=== PATIENT | male | born 1950 | race Caucasian/White ===

== ENCOUNTER 2019-01-01 06:02 | Inpatient (IN) | payer BC, MEDICARE ==
--- NOTE | 2018-12-31 19:05 | HP ---
HISTORY OF PRESENT ILLNESS: This is a 68-year-old gentleman, referred by Dr. Canelo Godfrey. In 2016, the patient had a PROMUS stent to the obtuse marginal #3. Serial stress studies have been negative until recently when he had some stress test showing mild ischemia to the anterior wall. Cardiac catheterization demonstrated progression of LAD diagonal disease. PAST MEDICAL HISTORY: Includes hyperlipidemia as well as lupus. The patient denies hypertension. PAST SURGICAL HISTORY: Includes TURP in April of this year, prior cholecystectomy and left inguinal hernia repair, prior colonoscopy. SOCIAL HISTORY: The patient is a nonsmoker. 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 ALLERGIES: HE REPORTS ALLERGIES TO FISH OIL, WHICH CAUSES ITCHING. CURRENT MEDICATIONS: Include; 1. Atorvastatin 20 a day. 2. Aspirin 81 a day. 3. Sulfasalazine 500 mg q.i.d. PHYSICAL EXAMINATION: GENERAL: He is alert, cooperative gentleman, in no distress. VITAL SIGNS: Recorded weight of 144 pounds, height 5 feet and 7 inches, blood pressure 110/60, heart rate 65. NECK: No carotid bruits. LUNGS: Clear to auscultation. CARDIAC: Regular rate and rhythm. No murmurs. EXTREMITIES: No edema. He has palpable posterior tibial pulses bilaterally. Cardiac catheterization shows LAD diagonal disease, with the circ and right showing no significant disease. REVIEW OF SYSTEMS: The patient denies fatigue, chest pain either at rest or with exertion, and no claudication. He has no abdominal pain. He has no neurologic symptoms to suggest a TIA or stroke. Informed consent has been obtained. Job ID: [id number]
[2019-01-01] MEDS ORDERED: Albumin 5% 500 ML ONE (06:35)
[2019-01-01] MEDS ORDERED: Fentanyl 250 MCG/5 ML VIAL ONE ×2 (06:42)
[2019-01-01] MEDS ORDERED: Midazolam HCl 5 mg/5 ml Vial ONE (06:43)
[2019-01-01] MEDS ORDERED: Heparin 10,000 UNITS/1 ML VIAL 30,000 UNITS in Sodium Chloride 0.9% 1,000 ML FS SCH (06:45)
[2019-01-01] MEDS ORDERED: Gentamicin 80 MG/2 ML VIAL ONE (07:56)
[2019-01-01] MEDS ORDERED: Phenylephrine HCL 10 MG/ML VIAL ONE (10:08)
[2019-01-01] MEDS ORDERED: Mag-Al 1200 mg/1200 mg/30 ML UDCUP PO PRN (10:57)
[2019-01-01] MEDS ORDERED: Hetastarch 6% 500 ML 500 ML IVPB PRN (10:57)
[2019-01-01] MEDS ORDERED: Ondansetron PF 4 MG/2 ML Vial IVP PRN (10:57)
[2019-01-01] MEDS ORDERED: Potassium Chloride 20 MEQ/100 ML PREMIX BAG IVPB PRN (10:57)
[2019-01-01] MEDS ORDERED: Norepinephrine 8 MG/0.9% NS 250 ML IVPB PRN (10:57)
[2019-01-01] MEDS ORDERED: Morphine 2 MG/ML SYRINGE SLOW IVP PRN (10:57)
[2019-01-01] MEDS ORDERED: Bisacodyl 5 MG TAB PO PRN (10:57)
[2019-01-01] MEDS ORDERED: DOPamine 400 MG/D5W 250 ML 250 ML IVPB PRN (10:57)
[2019-01-01] MEDS ORDERED: niCARdipine 25 MG in Sodium Chloride 0.9% 250 ML 250 ML IVPB PRN (10:57)
[2019-01-01] MEDS ORDERED: Guaifenesin DM 100-10/5 ML UDCUP PO PRN (10:57)
[2019-01-01] MEDS ORDERED: Fentanyl 100 MCG/2 ML VIAL SLOW IVP PRN (10:57)
[2019-01-01] MEDS ORDERED: Nitroglycerin 50 MG/250 ML BOT 250 ML IVPB PRN (10:57)
[2019-01-01] MEDS ORDERED: Promethazine HCl 25 MG/ML VIAL IM PRN (10:57)
[2019-01-01] MEDS ORDERED: Post-Op Insulin Drip Protocol IVPB ONE (10:57)
[2019-01-01] MEDS ORDERED: Acetaminophen 325 MG TAB PO PRN (10:57)
[2019-01-01] MEDS ORDERED: Bisacodyl 10 MG SUPP PR PRN (10:57)
[2019-01-01] MEDS ORDERED: hydrALAZINE 20 MG/ML VIAL SLOW IVP PRN (10:57)
[2019-01-01 11:07] LABS: Actual Bicarbonate (HCO3a) 22.6 mEq/L (22-28); Base Excess (BEa) -1.5 mEq/L (-2.0 to +3.0); CO2 Tension 35.9 mmHg (35.0-45.0); Calcium, Ionized 1.19 mmol/L (1.12-1.30); Carboxyhemoglobin (COHb) 0.2 gm% (0.0-3.0); Hemoglobin (Hb) 12.1 g/dL (14.0-18.0); O2 Tension (PaO2) 276.3 mmHg (> 80.0); Potassium - ABG Lab 3.98 mmol/L (3.70-5.30); pH, Arterial 7.42 (7.35-7.45)
[2019-01-01 11:08] LABS: ALV-art Gradient 106.625 (0-20); Puncture Site ALONE
[2019-01-01] MEDS ORDERED: Dextrose 5% in Water 1,000 ML IV PRN (11:11)
[2019-01-01] MEDS ORDERED: Insulin Regular 300 UNITS/3 ML VIAL SC PRN (11:11)
[2019-01-01] MEDS ORDERED: Dextrose 50% Abboject 50 ML SYRINGE SLOW IVP PRN (11:11)
[2019-01-01] MEDS ORDERED: HUMULIN R 100 UNITS in Sodium Chloride 0.9% 100 ML IVPB SCH (11:11)
--- NOTE | 2019-01-01 11:12 | RAD ---
XR Chest 1 View Portable HISTORY: Postop open heart surgery. COMPARISON: None. FINDINGS: Endotracheal tube is in satisfactory position. A right subclavian line is present. Midline and left-sided chest tubes are noted with sternotomy change. The lungs are clear of infiltrates. IMPRESSION: Postop sternotomy changes. The endotracheal tube is in satisfactory position.
[2019-01-01 11:23] LABS: INR-International Normal Ratio 1.2; Prothrombin Time 14.7 SEC (12.0-14.7)
[2019-01-01 11:24] LABS: PTT 33.6 SEC (22.9-36.1)
[2019-01-01] MEDS: Lactated Ringer's 1,000 ML IV SCH ×2 (11:25→23:49)
[2019-01-01 11:28] LABS: #Eosinphils 0.2 thou/uL (0.0-0.7); #Lymphocytes 1.8 thou/uL (1.20-3.40); #Monocytes 0.9 thou/uL (0.11-0.59); #Neutrophils 12.1 thou/uL (1.40-6.50); %Basophils 0.2 % (0.0-1.0); %Eosinophils 1.6 % (0.0-10.0); %Neutrophils 80.1 % (42.0-75.0); Hemoglobin 11.8 g/dL (14.0-18.0); Mean Corpuscular HGB CONC 33.6 g/dL (32.0-36.0); Mean Corpuscular Hemoglobin 32.9 pg (27.0-31.0); Mean Corpuscular Volume 97.7 fL (78.0-98.0); Mean Platelet Volume 7.9 fL (7.4-10.4); Platelet Count 181 thou/uL (130-400); RBC Distribution Width 11.9 % (11.5-14.5); Red Blood Cell (RBC) Count 3.58 mill/uL (4.70-6.10); White Blood Cell (WBC) Count 15.1 thou/uL (4.8-10.8)
[2019-01-01] MEDS: Ketorolac Tromethamine 30 MG/ML VIAL IVP SCH ×3 (11:37→23:46)
[2019-01-01 11:39] LABS: Anion Gap 8 mmol/L (10-20); BUN (Urea Nitrogen) 13 mg/dL (8.4-25.7); Calc. Creatinine Clearance 86 mL/min (70-130); Calcium 8.6 mg/dL (7.8-10.44); Carbon Dioxide 24 mmol/L (23-31); Chloride 107 mmol/L (98-107); Estimated GFR-MDRD Greater than 90; Glucose 166 mg/dL (80-115); Sodium 135 mmol/L (136-145)
[2019-01-01 13:17] LABS: Actual Bicarbonate (HCO3a) 20.6 mEq/L (22-28); Base Excess (BEa) -5.5 mEq/L (-2.0 to +3.0); Calcium, Ionized 1.16 mmol/L (1.12-1.30); Carboxyhemoglobin (COHb) 0.3 gm% (0.0-3.0); Hemoglobin (Hb) 11.8 g/dL (14.0-18.0); O2 Tension (PaO2) 182.7 mmHg (> 80.0); Potassium - ABG Lab 3.87 mmol/L (3.70-5.30)
[2019-01-01 13:29] LABS: Puncture Site ALINE
[2019-01-01] MEDS ORDERED: Heparin 30,000 units/30 ml VIAL ONE (13:34)
[2019-01-01] MEDS ORDERED: Papaverine 60 MG/2 ML VIAL ONE (13:34)
[2019-01-01] MEDS ORDERED: Protamine Sulfate 250 MG/25 ML VIAL ONE (13:34)
[2019-01-01] MEDS ORDERED: Aminocaproic Acid 5 GM/20 ML VIAL ONE (13:34)
[2019-01-01] MEDS ORDERED: Sodium Bicarb 50 MEQ/50 ML VIAL ONE (13:34)
[2019-01-01] MEDS ORDERED: Potassium Chloride 60 MEQ/30 ML VIAL ONE (13:34)
[2019-01-01] MEDS ORDERED: Ondansetron PF 4 MG/2 ML Vial ONE (13:34)
[2019-01-01] MEDS ORDERED: Heparin 5,000 UNITS/ML VIAL ONE (13:34)
[2019-01-01] MEDS ORDERED: Mannitol 12.5 GM/50 ML ONE (13:34)
[2019-01-01] MEDS ORDERED: Cardioplegic Soln 1,000 ML BAG ONE (13:34)
[2019-01-01] MEDS ORDERED: Lidocaine 2% PF 100 mg/5 ml Syringe ONE (13:34)
[2019-01-01] MEDS ORDERED: Magnesium 5 GM/10 ML VIAL ONE (13:34)
[2019-01-01] MEDS ORDERED: Thrombin 5000 UNITS/5 ML VIAL ONE (13:34)
[2019-01-01] MEDS ORDERED: PROPOFOL 200 MG/20 ML VIAL ONE (13:34)
[2019-01-01] MEDS ORDERED: Vecuronium 10 MG VIAL ONE (13:34)
[2019-01-01] MEDS ORDERED: Calcium Chloride 1 GM/10 ML Abboject SYRINGE ONE (13:34)
[2019-01-01] MEDS: Fentanyl 100 MCG/2 ML VIAL SLOW IVP PRN ×2 (13:41→16:29)
[2019-01-01] MEDS: CEFAZOLIN 2 GM in Premix Bag 1 BAG IVPB SCH ×2 (13:50→21:19)
--- NOTE | 2019-01-01 15:43 | CON ---
DATE OF CONSULTATION: 01/01/2019 REASON FOR CONSULTATION: Status post CABG. PRIMARY SYSTEMS ENGINEERING MANAGER: Canelo Godfrey MD HISTORY OF PRESENT ILLNESS: Mr. Payan is a pleasant 68-year-old white gentleman, who comes to the hospital for a planned CABG. This was performed by Dr. Parra earlier today. Mr. Payan had a heart catheterization that showed complex LAD and diagonal disease and this was bypassed today. On my evaluation, he was intubated, but already awakened close to being extubated. He is following commands. He is hemodynamically stable on no sedation, maintaining his blood pressures on no inotropic or pressor support. PAST MEDICAL HISTORY: 1. Hyperlipidemia. 2. Lupus. 3. Coronary artery disease, status post stent to his OM in 2015 and bypass earlier today. PAST SURGICAL HISTORY: 1. TURP in April of this year. 2. Cholecystectomy. 3. Left inguinal hernia repair. 4. Colonoscopies in the past. 5. Heart catheterization with stenting and more recently just a diagnostic heart catheterization. SOCIAL HISTORY: No alcohol, tobacco, or drugs. ALLERGIES: FISH OIL CAUSES ITCHING. OUTPATIENT MEDICATIONS: 1. Atorvastatin 10 mg a day. 2. Aspirin 81 a day. 3. Sulfasalazine 500 mg q.i.d. FAMILY HISTORY: Noncontributory. REVIEW OF SYSTEMS: Unable to be obtained as the patient was intubated on my evaluation. PHYSICAL EXAMINATION: VITAL SIGNS: Temperature 96.7, pulse 69, respiratory rate 29, saturating 100% on 30% FiO2, and blood pressure 97/51. GENERAL: Awake, but remains intubated. HEENT: Normocephalic, atraumatic. NECK: Supple. LUNGS: Clear sounds anteriorly. CARDIOVASCULAR: S1 and S2. There are three-component rub. ABDOMEN: Soft. EXTREMITIES: Trace edema. SKIN: Warm and dry. LABORATORY DATA: Laboratory work was reviewed. CBC, coags, ABG, and chemistries were reviewed. IMAGING DATA: Postop chest x-ray was reviewed. ASSESSMENT: 1. Coronary artery disease, status post coronary artery bypass grafting. 2. Hyperlipidemia. PLAN: 1. Continue postoperative and supportive care. 2. Aspirin and statin for life. 3. We will start beta-cristel and an YUSEF inhibitor as long as blood pressure and heart rate allows. Currently, his blood pressure is borderline low. 4. Start PT when tolerated. 5. We will follow. Job ID: [id number]
[2019-01-01] MEDS ORDERED: Insulin Regular 300 UNITS/3 ML VIAL ONE (16:36)
[2019-01-01 16:39] LABS: Hemoglobin 10.9 g/dL (14.0-18.0)
[2019-01-01 16:51] LABS: Potassium 4.4 mmol/L (3.5-5.1)
[2019-01-01] MEDS: sulfaSALAzine 500 MG TAB PO SCH (21:19)
[2019-01-01] MEDS: Famotidine/PF 20 mg/2ml Vial SLOW IVP SCH (21:19)
[2019-01-01] MEDS: Atorvastatin Calcium 20 MG TAB PO SCH (21:19)
--- NOTE | 2019-01-01 22:50 | CON ---
DATE OF CONSULTATION: 01/01/2019 CONSULTING PHYSICIAN: Dr. Parra. REASON FOR CONSULTATION: Urethral stricture. HISTORY OF PRESENT ILLNESS: Mr. Payan is a 68-year-old white male, who is currently coming in for a CABG procedure. He has a history of a TURP done by Dr. Frias recently within the last few months. He apparently had been diagnosed with urethral stricture postoperatively, but had not yet had this treated. He did tell this Dr. Parra immediately before surgery. Upon undergoing the surgery at the start of the case, attempts to pass a Sheridan catheter were unsuccessful. I was then asked to come in for further assistance to assist with catheter insertion. ALLERGIES: FISH OIL. CURRENT MEDICATIONS: 1. Atorvastatin. 2. Aspirin. 3. Sulfasalazine. PAST MEDICAL HISTORY: 1. Hyperlipidemia. 2. Lupus. 3. BPH. 4. Urethral stricture. PAST SURGICAL HISTORY: 1. TURP. 2. Cholecystectomy. 3. Left inguinal hernia repair. 4. Colonoscopy. FAMILY HISTORY: Unable to be obtained and apparently noncontributory by nursing report. SOCIAL HISTORY: The patient is a nonsmoker. Currently lives alone. Works on a [employer] in [place]. REVIEW OF SYSTEMS: A 12-point review of systems cannot be obtained as the patient is currently intubated and sedated. PHYSICAL EXAMINATION: VITAL SIGNS: Temperature 98.2, pulse 69, respirations 20 on ventilator, blood pressure 105/48, and saturations 99%, again on ventilator. GENERAL: Appears stated age, well nourished, well developed, currently sedated and intubated. HEENT: Normocephalic, atraumatic. Pupils symmetric and round. Trachea midline. ET tube in place, secured. CARDIOVASCULAR: Regular rate and rhythm. Normal S1, S2. Symmetric pulses. CHEST: No increased work of breathing. Clear anteriorly. Symmetric expansion of the lungs. ABDOMEN: Soft, nontender, and nondistended. Positive bowel sounds. Previous well-healed incisions. No hernia. : The patient has no blood at the meatus. He is circumcised, bilaterally descended testes. No masses or lesions. RECTAL: Demonstrates a grade 3-4 prostate without nodules or lesions. EXTREMITIES: No clubbing, cyanosis, or edema. MUSCULOSKELETAL: No joint deformity or joint erythema noted. NEUROLOGIC: Exam cannot be performed as patient is currently sedated and under anesthesia. SKIN: Warm and dry. No rashes or lesions. Poor turgor. PSYCHIATRIC: Cannot be assessed. LABORATORY DATA: A full set of labs are in the [facility] system, which I have reviewed. The patient's creatinine is normal at 0.98. All other lab parameters are normal. PROCEDURE: Please see operative note dictated separately for the insertion of the catheter. ASSESSMENT AND PLAN: A 68-year-old white male with urethral stricture status post dilation done intraoperatively as intraoperative consult. We would recommend leaving the catheter in for at least 7 days. On my discussion with Dr. Parra, the patient will probably be discharged to cardiac rehab prior to this. The patient has an established urologist and should follow up with Dr. Frias for a void trial in approximately 1 week. The patient may be at risk for stricture recurrence as dilations have the lowest success rate of all treatments. That said it may remain open, but if it recurs, he will need more definitive treatment with either direct vision internal urethrotomy or urethroplasty depending on stricture staging. Currently, patient has already received gentamicin. No additional antibiotics are necessary. I will go ahead and sign off. If there are any further questions or problems, please re-consult and I will be happy to assist. Job ID: [id number]
--- NOTE | 2019-01-01 23:03 | OP ---
DATE OF PROCEDURE: 01/01/2019 SERVICE: Urology. PREOPERATIVE DIAGNOSIS: Urethral stricture. POSTOPERATIVE DIAGNOSIS: Urethral stricture. PROCEDURE PERFORMED: Cystoscopy with urethral dilation and placement of a 16-Djiboutian Enterprise-tip catheter. INDICATION FOR PROCEDURE: This patient was an intraoperative consult. Dr. Jefry Parra is bringing the patient in for an elective CABG. The patient has a history of a TURP done by Dr. Frias as an outpatient and apparently had been told that he had a urethral stricture. When brought back to the operating room, the surgeon was unable to pass a catheter and I was consulted intraoperatively for placement of a Sheridan catheter. DESCRIPTION OF PROCEDURE: After my arrival to the operating room, a brief time-out was obtained to ensure patient and the need for procedure. He was then prepped and draped in usual sterile fashion. A flexible cystoscope was brought in and inserted into the patient's distal urethra. The patient had already been put to sleep for his coronary artery bypass grafting procedure and I was unable to talk to him for the duration of the procedure. Cystoscopy demonstrated normal urethra up to the bulbar urethra where there was apparently a thin stricture present. I was not able to evaluate the prostate proximal to this. An Amplatz Superstiff wire was able to be advanced through the stricture into the bladder. The cystoscope was then removed and Cassi dilators were brought in starting at 10-Djiboutian and up to 22-Djiboutian, serially dilated. After dilation, a 16-Djiboutian Enterprise tip catheter was advanced over the Super Stiff wire with ease into the bladder. The wire was removed and a 25 mL of sterile water was placed into the balloon. Catheter was attached to gravity bag and left for gravity drainage. I thus concluded my portion of the procedure. Dr. Jefry Parra will then perform the CABG surgery that was planned from the start. COMPLICATIONS: For my portion of the procedure, none. ESTIMATED BLOOD LOSS: Minimal. RETAINED TUBES AND DRAINS: A 16-Djiboutian Enterprise tip catheter to gravity drainage. SPECIMENS: None. DISPOSITION: The patient will be admitted after surgery by Dr. Parra to the CCU for postoperative CABG protocol. From my standpoint, he will need to keep a Sheridan catheter in for 7 days at which point, we can consider a void trial. The patient can follow up with Dr. Frias, his primary urologist after discharge for eventual followup. Job ID: [id number]
[2019-01-02 03:51] LABS: #Eosinphils 0.2 thou/uL (0.0-0.7); #Lymphocytes 1.1 thou/uL (1.20-3.40); %Basophils 0.2 % (0.0-1.0); %Eosinophils 1.8 % (0.0-10.0); %Lymphocytes 8.6 % (21.0-51.0); %Neutrophils 81.5 % (42.0-75.0); Hemoglobin 11.4 g/dL (14.0-18.0); Mean Corpuscular HGB CONC 34.6 g/dL (32.0-36.0); Mean Corpuscular Hemoglobin 34.4 pg (27.0-31.0); Mean Corpuscular Volume 99.4 fL (78.0-98.0); Mean Platelet Volume 7.7 fL (7.4-10.4); Platelet Count 176 thou/uL (130-400); RBC Distribution Width 12.1 % (11.5-14.5); Red Blood Cell (RBC) Count 3.31 mill/uL (4.70-6.10); White Blood Cell (WBC) Count 12.3 thou/uL (4.8-10.8)
[2019-01-02 04:10] LABS: Anion Gap 8 mmol/L (10-20); BUN (Urea Nitrogen) 12 mg/dL (8.4-25.7); Calc. Creatinine Clearance 88 mL/min (70-130); Calcium 8.3 mg/dL (7.8-10.44); Carbon Dioxide 25 mmol/L (23-31); Chloride 106 mmol/L (98-107); Estimated GFR-MDRD Greater than 90; Glucose 97 mg/dL (80-115); Potassium 4.3 mmol/L (3.5-5.1); Sodium 135 mmol/L (136-145)
[2019-01-02] MEDS: CEFAZOLIN 2 GM in Premix Bag 1 BAG IVPB SCH (05:41)
[2019-01-02] MEDS: Ketorolac Tromethamine 30 MG/ML VIAL IVP SCH ×3 (05:42→17:45)
[2019-01-02] MEDS: Famotidine/PF 20 mg/2ml Vial SLOW IVP SCH (07:37)
[2019-01-02] MEDS: HYDROcodone/Acetaminophen 5/325 mg Tablet PO PRN (07:38)
--- NOTE | 2019-01-02 08:26 | OP ---
DATE OF PROCEDURE: 01/01/2019 DIAGNOSIS: Coronary artery disease. PROCEDURES PERFORMED: Coronary artery bypass graft x2, left internal mammary artery to an LAD, saphenous vein to a diagonal with both targets being good targets. ENGINEERING CONSULTANT: Dr. Baker. TRANSFUSION: None. DESCRIPTION OF PROCEDURE: After adequate anesthesia had been obtained, Dr. Baker harvested a segment of saphenous vein from the distal left thigh while I performed a median sternotomy harvesting the left internal mammary artery. The left pleura was entered in one small area. After heparinization, the mammary was divided distally and passed posterior to the thymus gland. Aorta and right atrium were cannulated and cardiopulmonary bypass was begun. Aorta was cross clamped and after 900 mL of cold blood cardioplegia, the two distal anastomoses were completed. Cross-clamp was removed, partial occluding clamp placed, and a single proximal anastomosis was performed and marked with a ring. Following this, the patient was weaned from cardiopulmonary bypass. Cannula was removed and protamine given systemically. Mediastinal and left pleural drains were placed, following which the sternum was reapproximated with #7 interrupted wire using vancomycin paste on the sternal edges, platelet rich blood and platelet poor plasma. Subcutaneous tissue and skin were closed in layers. The patient is to be taken to the ICU in guarded condition. It should be noted that prior to surgical undertaking, the patient required Dr. Booth to perform cystoscopy to place a Sheridan catheter due to a bulbar urethral stricture. Job ID: [id number]
[2019-01-02] MEDS: Enoxaparin Sodium 30 MG/0.3 ML SYRINGE SC SCH (08:55)
[2019-01-02] MEDS: Polyethylene Glycol 3350 17 GM Packet PO SCH (08:57)
[2019-01-02] MEDS ORDERED: Aspirin 325 MG TAB PO SCH (09:00)
--- NOTE | 2019-01-02 09:12 | RAD ---
PORTABLE CHEST: DATE: 01/02/2019. PROVIDED CLINICAL HISTORY: Post open heart. COMPARISON: 01/01/2019. FINDINGS: Interval removal of endotracheal tube. Additional significant interval change with respect to the pr ior examination is not apparent. IMPRESSION: As above. POS: TPC
[2019-01-02] MEDS: sulfaSALAzine 500 MG TAB PO SCH ×2 (10:41→21:28)
--- NOTE | 2019-01-02 14:28 | PDOC.CPN ---
- Subjective Date: 01/02/19 Time: 14:26 Interval history: He is doing well. Chest tubes are out. No pressors or innotropes. - Review of Systems General: denies: fever/chills, weight/appetite/sleep changes, night sweats, fatigue Respiratory: denies: cough, congestion, shortness of breath, exercise intolerance Cardiovascular: reports: chest pain. denies: palpitation, edema, paroxysmal nocturnal dyspnea, orthopnea Gastrointestinal: denies: nausea, vomiting, diarrhea, constipation, abd pain, GI bleeding Musculoskeletal: denies: pain, tenderness, stiffness, swelling, arthritis/ arthralgias Neurological: denies: numbness, syncope, seizure, weakness - Objective Allergies/Adverse Reactions: Allergies Allergy/AdvReac Type Severity Reaction Status Date / Time oxybutynin Allergy Anxiety Verified 12/31/18 10:52 HEB Fish Oil Allergy Rash Uncoded 12/31/18 10:52 Visit Medications: Current Medications Acetaminophen (Tylenol) 650 mg PO Q6H PRN PRN Reason: Headache/Fever Or Mild Pain Hydrocodone Bitart/Acetaminophen ([place] 5/325) 1 tab PO Q4H PRN PRN Reason: Moderate Pain (4-6) Last Admin: 01/02/19 07:38 Dose: 1 tab Hydrocodone Bitart/Acetaminophen ([place] 5/325) 2 tab PO Q4H PRN PRN Reason: Severe Pain (7-10) Al Hydroxide/Mg Hydroxide (Maalox) 30 ml PO Q4H PRN PRN Reason: Indigestion Albuterol/Ipratropium (Duoneb) 3 ml NEB Q6H PRN PRN Reason: SHORTNESS OF BREATH Aspirin (Aspirin) 325 mg PO DAILY [facility] Last Admin: 01/02/19 08:54 Dose: 325 mg Atorvastatin Calcium (Lipitor) 20 mg PO HS [facility] Last Admin: 01/01/19 21:19 Dose: 20 mg Bisacodyl (Dulcolax) 10 mg PO Q12H PRN PRN Reason: Constipation Bisacodyl (Dulcolax) 10 mg MD Q12H PRN PRN Reason: Constipation Enoxaparin Sodium (Lovenox) 30 mg SC 0900 [facility] Last Admin: 01/02/19 08:55 Dose: 30 mg Famotidine (Pepcid) 20 mg SLOW IVP Q12HR [facility] Last Admin: 01/02/19 07:37 Dose: 20 mg Fentanyl (Sublimaze) 25 mcg SLOW IVP Q2H PRN PRN Reason: Moderate Pain (4-6) Stop: 01/03/19 10:42 Last Admin: 01/01/19 16:29 Dose: 25 mcg Fentanyl (Sublimaze) 50 mcg SLOW IVP Q2H PRN PRN Reason: Severe Pain (7-10) Stop: 01/03/19 10:42 Guaifenesin/Dextromethorphan (Robitussin Dm) 15 ml PO Q4H PRN PRN Reason: Cough Hydralazine HCl (Apresoline) 10 mg SLOW IVP Q6H PRN PRN Reason: To Maintain SBP< 140mmHG Dopamine HCl/Dextrose (Dopamine 400 Mg/D5w 250 Ml) 250 mls @ 0 mls/hr IVPB PRN PRN; Protocol PRN Reason: To maintain SBP > 90 mmHG Lactated Ringer's (Lactated Ringer's) 1,000 mls @ 70 mls/hr IV .[id number] [facility] Last Admin: 01/01/19 23:49 Dose: 1,000 mls Norepinephrine Bitartrate (Levophed) 250 mls @ 0 mls/hr IVPB PRN PRN; Protocol PRN Reason: To maintain SBP > 90 mmHG Insulin Human Regular 100 (units/ Sodium Chloride) 101 mls @ 0 mls/hr IVPB INF JESSICA; Protocol Last Admin: 01/01/19 12:35 Dose: 101 mls Insulin Human Regular (Humulin R) 0 units SC Q4H PRN; Protocol PRN Reason: POST OP SLIDING SCALE Last Admin: 01/01/19 16:37 Dose: 2 unit Ketorolac Tromethamine (Toradol) 15 mg IVP Q6HR [facility] Stop: 01/04/19 12:01 Last Admin: 01/02/19 11:53 Dose: 15 mg Ondansetron HCl (Zofran) 4 mg IVP Q6H PRN PRN Reason: Nausea/Vomiting Last Admin: 01/02/19 07:38 Dose: 4 mg Polyethylene Glycol (Miralax) 17 gm PO DAILY [facility] Last Admin: 01/02/19 08:57 Dose: Not Given Potassium Chloride (Kcl) 20 meq IVPB PRN PRN PRN Reason: K level </= 4.0 Last Admin: 01/01/19 11:45 Dose: 20 meq Promethazine HCl (Phenergan) 6.25 mg IM Q4H PRN PRN Reason: Nausea/Vomiting Sulfasalazine (Azulfidine) 500 mg PO BID JESSICA Last Admin: 01/02/19 10:41 Dose: 500 mg Vital Signs & Weight: Vital Signs Temp Pulse Ox 01/02/19 11:00 98.4 F 01/02/19 08:00 98.5 F 100 01/02/19 04:00 99.1 F Weight 153 lb 10.595 oz - Physical Exam General: alert & oriented x3 HEENT: mucus membranes moist Neck: supple neck Cardiac: regular rate and rhythm, no murmur Lungs: clear to auscultation Neuro: grossly intact Abdomen: active bowel sounds, soft, non-tender Skin: clear Musculoskeletal: normal range of motion - Labs Result Diagrams: 01/02/19 03:40 01/02/19 03:30 - Telemetry Sinus rhythms and dysrhythmias: sinus rhythm - Assessment/Plan Assessment/Plan: 1. CAD 2. S/P CABG 3. Lupus 4. HLP PLAN: - Continue post op care. - Aspirin and statin for life. - Cannot add a BB or ACEI as BP is low. I doubt we will be able to add them before discharge as his BP is always on the low side. - Start PT and increase as tolerated. - Critical Care Time Critical care time (mins): 30
--- NOTE | 2019-01-02 16:49 | EKG ---
Test Reason : S/P CABG Blood Pressure : / mmHG Vent. Rate : 074 BPM Atrial Rate : 074 BPM P-R Int : 178 ms QRS Dur : 088 ms QT Int : 404 ms P-R-T Axes : 067 006 029 degrees QTc Int : 448 ms Normal sinus rhythm Cannot rule out Inferior infarct , age undetermined Abnormal ECG No previous ECGs available Confirmed by DR. Amber MARIE ([id number]) on 01/02/2019 4:48:48 PM Referred By: RYAN Confirmed By:DR. Amber MARIE
[2019-01-02] MEDS: Lactated Ringer's 1,000 ML IV SCH (17:46)
[2019-01-02] MEDS ORDERED: Guaifenesin DM 100-10/5 ML UDCUP PO PRN (19:19)
[2019-01-02] MEDS ORDERED: Mag-Al 1200 mg/1200 mg/30 ML UDCUP PO PRN (19:19)
[2019-01-02] MEDS ORDERED: Mineral Oil ENEMA PR PRN (19:19)
[2019-01-02] MEDS ORDERED: Nitroglycerin 0.4 MG TAB (25 Tab Bottle) SL PRN (19:19)
[2019-01-02] MEDS ORDERED: Acetaminophen 325 MG TAB PO PRN (19:19)
[2019-01-02] MEDS ORDERED: Bisacodyl 5 MG TAB PO PRN (19:19)
[2019-01-02] MEDS ORDERED: Bisacodyl 10 MG SUPP PR PRN (19:19)
[2019-01-02] MEDS ORDERED: Ondansetron PF 4 MG/2 ML Vial IVP PRN (19:19)
[2019-01-02] MEDS: Atorvastatin Calcium 20 MG TAB PO SCH (21:28)
[2019-01-02] MEDS: Famotidine 20 MG TAB PO SCH (21:28)
[2019-01-03] MEDS: HYDROcodone/Acetaminophen 5/325 mg Tablet PO PRN ×3 (00:39→21:22)
[2019-01-03] MEDS: Potassium Chloride 10 MEQ TAB PO SCH (08:54)
[2019-01-03] MEDS: Enoxaparin Sodium 30 MG/0.3 ML SYRINGE SC SCH (08:55)
[2019-01-03] MEDS: sulfaSALAzine 500 MG TAB PO SCH ×2 (08:55→21:22)
[2019-01-03] MEDS: Polyethylene Glycol 3350 17 GM Packet PO SCH (08:55)
[2019-01-03] MEDS: Furosemide 40 MG TAB PO SCH (08:55)
[2019-01-03] MEDS: Aspirin 325 mg Enteric Coated Tablet PO SCH (08:55)
[2019-01-03] MEDS: Famotidine 20 MG TAB PO SCH ×2 (08:55→21:22)
--- NOTE | 2019-01-03 10:38 | PDOC.CPN ---
- Subjective Date: 01/03/19 Time: 10:10 Interval history: No overnight events. Walked this morning with PT. - Review of Systems General: reports: weight/appetite/sleep changes, fatigue. denies: fever/chills , night sweats Respiratory: denies: cough, congestion, shortness of breath, exercise intolerance Cardiovascular: denies: chest pain, palpitation, edema, paroxysmal nocturnal dyspnea, orthopnea Musculoskeletal: reports: pain Neurological: reports: seizure. denies: numbness, syncope, weakness - Objective Allergies/Adverse Reactions: Allergies Allergy/AdvReac Type Severity Reaction Status Date / Time oxybutynin Allergy Anxiety Verified 12/31/18 10:52 HEB Fish Oil Allergy Rash Uncoded 12/31/18 10:52 Visit Medications: Current Medications Acetaminophen (Tylenol) 650 mg PO Q6H PRN PRN Reason: Headache/Fever or Pain Hydrocodone Bitart/Acetaminophen ([place] 5/325) 1 tab PO Q4H PRN PRN Reason: Moderate Pain (4-6) Last Admin: 01/03/19 08:55 Dose: 1 tab Hydrocodone Bitart/Acetaminophen ([place] 5/325) 2 tab PO Q4H PRN PRN Reason: Severe Pain (7-10) Last Admin: 01/03/19 00:39 Dose: 2 tab Al Hydroxide/Mg Hydroxide (Maalox) 30 ml PO Q4H PRN PRN Reason: Indigestion Aspirin (Ecotrin) 325 mg PO DAILY [facility] BEDS AT [facility] Last Admin: 01/03/19 08:55 Dose: 325 mg Atorvastatin Calcium (Lipitor) 20 mg PO HS [facility]S [facility]CLUDE 234 BEDS AT THE [facility] Last Admin: 01/02/19 21:28 Dose: 20 mg Bisacodyl (Dulcolax) 10 mg PO Q12H PRN PRN Reason: Constipation Bisacodyl (Dulcolax) 10 mg MT Q12H PRN PRN Reason: Constipation Enoxaparin Sodium (Lovenox) 30 mg SC 0900 [facility]S [facility] 234 BEDS AT [facility] Last Admin: 01/03/19 08:55 Dose: 30 mg Famotidine (Pepcid) 20 mg PO BID [facility]CLUDE 234 BEDS AT THE [facility] Last Admin: 01/03/19 08:55 Dose: 20 mg Fentanyl (Sublimaze) 25 mcg SLOW IVP Q2H PRN PRN Reason: Moderate Pain (4-6) Stop: 01/03/19 10:42 Last Admin: 01/01/19 16:29 Dose: 25 mcg Furosemide (Lasix) 40 mg PO DAILY [facility]CLUDE 234 BEDS AT THE [facility] Last Admin: 01/03/19 08:55 Dose: 40 mg Guaifenesin/Dextromethorphan (Robitussin Dm) 15 ml PO Q4H PRN PRN Reason: Cough Mineral Oil (Fleet Mineral Oil) 133 ml MT DAILYPRN PRN PRN Reason: Constipation Nitroglycerin (Nitrostat) 0.4 mg SL Q5MIN PRN PRN Reason: Chest Pain Ondansetron HCl (Zofran) 4 mg IVP Q6H PRN PRN Reason: Nausea/Vomiting Polyethylene Glycol (Miralax) 17 gm PO DAILY [facility] 234 BEDS AT [facility] Last Admin: 01/03/19 08:55 Dose: 17 gm Potassium Chloride (Klor-Con 10) 10 meq PO QAM-WM COUNTS INCLUDE 234 BEDS AT THE [facility] Last Admin: 01/03/19 08:54 Dose: 10 meq Sulfasalazine (Azulfidine) 500 mg PO BID [facility]CLUDE 234 BEDS AT THE [facility] Last Admin: 01/03/19 08:55 Dose: 500 mg Vital Signs & Weight: Vital Signs Temp Pulse Pulse Pulse Resp BP BP 01/03/19 09:24 89 83 96/52 L 104/56 L 01/03/19 08:27 97.6 F 81 18 01/03/19 03:17 98.8 F 65 18 BP Pulse Ox Pulse Ox Pulse Ox 01/03/19 09:24 97 97 01/03/19 08:27 94/54 L 98 01/03/19 03:17 94/54 L 95 Weight 150 lb 9.6 oz - Quality Measures CV meds: Beta Noé: No, YUSEF/ARB: No, Statin: Yes, ASA: Yes - Medication Contraindications No Beta Noé reason: Medical contraindication No YUSEF/ARB reason: Medical contraindication - Physical Exam General: alert & oriented x3, appears well HEENT: mucus membranes moist Neck: supple neck Cardiac: regular rate and rhythm Lungs: clear to auscultation, normal breath sounds, no wheeze, rales, rhonchi Neuro: grossly intact Abdomen: active bowel sounds, non-tender Skin: clear Musculoskeletal: normal range of motion - Labs Result Diagrams: 01/02/19 03:40 01/02/19 03:30 - Telemetry Sinus rhythms and dysrhythmias: sinus rhythm - Assessment/Plan Assessment/Plan: 1. CAD 2. S/P CABG 3. Lupus 4. HLD 5. Insomnia Stable. Continue to increase exercise as tolerated. No bblocker now due to hypotension. PRN sleep aid.
[2019-01-03 16:56] VITALS: BMI 22.7
[2019-01-03] MEDS: Atorvastatin Calcium 20 MG TAB PO SCH (21:22)
[2019-01-04] MEDS: Potassium Chloride 10 MEQ TAB PO SCH (08:16)
[2019-01-04] MEDS: Aspirin 325 mg Enteric Coated Tablet PO SCH (08:17)
[2019-01-04] MEDS: Polyethylene Glycol 3350 17 GM Packet PO SCH (08:17)
[2019-01-04] MEDS: Furosemide 40 MG TAB PO SCH (08:17)
[2019-01-04] MEDS: Enoxaparin Sodium 30 MG/0.3 ML SYRINGE SC SCH (08:17)
[2019-01-04] MEDS: Famotidine 20 MG TAB PO SCH ×2 (08:17→20:52)
[2019-01-04] MEDS: sulfaSALAzine 500 MG TAB PO SCH ×2 (08:17→20:52)
--- NOTE | 2019-01-04 10:31 | PDOC.CPN ---
- Subjective Date: 01/04/19 Time: 10:00 - Review of Systems General: denies: fever/chills, weight/appetite/sleep changes, night sweats, fatigue Respiratory: denies: cough, congestion, shortness of breath, exercise intolerance Cardiovascular: denies: chest pain, palpitation, edema, paroxysmal nocturnal dyspnea, orthopnea Gastrointestinal: reports: constipation. denies: nausea, vomiting, diarrhea, abd pain, GI bleeding Musculoskeletal: denies: pain, tenderness, stiffness, swelling, arthritis/ arthralgias Neurological: denies: numbness, syncope, seizure, weakness - Objective Allergies/Adverse Reactions: Allergies Allergy/AdvReac Type Severity Reaction Status Date / Time oxybutynin Allergy Anxiety Verified 12/31/18 10:52 HEB Fish Oil Allergy Rash Uncoded 12/31/18 10:52 Visit Medications: Current Medications Acetaminophen (Tylenol) 650 mg PO Q6H PRN PRN Reason: Headache/Fever or Pain Hydrocodone Bitart/Acetaminophen ([place] 5/325) 1 tab PO Q4H PRN PRN Reason: Moderate Pain (4-6) Last Admin: 01/03/19 08:55 Dose: 1 tab Hydrocodone Bitart/Acetaminophen ([place] 5/325) 2 tab PO Q4H PRN PRN Reason: Severe Pain (7-10) Last Admin: 01/03/19 21:22 Dose: 2 tab Al Hydroxide/Mg Hydroxide (Maalox) 30 ml PO Q4H PRN PRN Reason: Indigestion Aspirin (Ecotrin) 325 mg PO DAILY [facility] Last Admin: 01/04/19 08:17 Dose: 325 mg Atorvastatin Calcium (Lipitor) 20 mg PO HS [facility] Last Admin: 01/03/19 21:22 Dose: 20 mg Bisacodyl (Dulcolax) 10 mg PO Q12H PRN PRN Reason: Constipation Bisacodyl (Dulcolax) 10 mg [place] Q12H PRN PRN Reason: Constipation Enoxaparin Sodium (Lovenox) 30 mg SC 0900 [facility] Last Admin: 01/04/19 08:17 Dose: 30 mg Famotidine (Pepcid) 20 mg PO BID [facility] Last Admin: 01/04/19 08:17 Dose: 20 mg Furosemide (Lasix) 40 mg PO DAILY [facility] Last Admin: 01/04/19 08:17 Dose: 40 mg Guaifenesin/Dextromethorphan (Robitussin Dm) 15 ml PO Q4H PRN PRN Reason: Cough Mineral Oil (Fleet Mineral Oil) 133 ml [place] DAILYPRN PRN PRN Reason: Constipation Nitroglycerin (Nitrostat) 0.4 mg SL Q5MIN PRN PRN Reason: Chest Pain Ondansetron HCl (Zofran) 4 mg IVP Q6H PRN PRN Reason: Nausea/Vomiting Polyethylene Glycol (Miralax) 17 gm PO DAILY [facility] Last Admin: 01/04/19 08:17 Dose: 17 gm Potassium Chloride (Klor-Con 10) 10 meq PO QAM-WM [facility] Last Admin: 01/04/19 08:16 Dose: 10 meq Sulfasalazine (Azulfidine) 500 mg PO BID [facility] Last Admin: 01/04/19 08:17 Dose: 500 mg Vital Signs & Weight: Vital Signs Temp Pulse Pulse Pulse Resp BP BP 01/04/19 08:40 72 76 120/70 109/66 01/04/19 07:16 98.5 F 76 18 01/04/19 03:47 97.9 F 79 16 BP Pulse Ox Pulse Ox Pulse Ox 01/04/19 08:40 97 95 01/04/19 07:16 107/70 95 01/04/19 03:47 108/69 95 Weight 146 lb 3.2 oz - Quality Measures CV meds: Beta Noé: No, YUSEF/ARB: No, Statin: Yes, ASA: Yes - Medication Contraindications No Beta Noé reason: Medical contraindication No YUSEF/ARB reason: Medical contraindication - Physical Exam General: alert & oriented x3, appears well HEENT: mucus membranes moist Neck: supple neck Cardiac: regular rate and rhythm, no murmur Lungs: clear to auscultation, normal breath sounds, no wheeze, rales, rhonchi Neuro: grossly intact Abdomen: unremarkable, soft Skin: clear - Labs Result Diagrams: 01/02/19 03:40 01/02/19 03:30 - Assessment/Plan Assessment/Plan: 1. CAD 2. S/P CABG 3. Lupus 4. HLD 5. Insomnia Stable. Patient requesting meds for constipation and abdominal bloating. Effect of post-anesthesia and pain med side effect. Miralax given. Encouraged fluids and fiber.
[2019-01-04] MEDS: Atorvastatin Calcium 20 MG TAB PO SCH (20:52)
[2019-01-05] MEDS: Polyethylene Glycol 3350 17 GM Packet PO SCH (08:48)
[2019-01-05] MEDS: Potassium Chloride 10 MEQ TAB PO SCH (08:49)
[2019-01-05] MEDS: Enoxaparin Sodium 30 MG/0.3 ML SYRINGE SC SCH (08:49)
[2019-01-05] MEDS: Aspirin 325 mg Enteric Coated Tablet PO SCH (08:49)
[2019-01-05] MEDS: Famotidine 20 MG TAB PO SCH ×2 (08:49→20:10)
[2019-01-05] MEDS: sulfaSALAzine 500 MG TAB PO SCH ×2 (08:49→20:10)
--- NOTE | 2019-01-05 17:57 | PDOC.CPN ---
- Subjective Date: 01/05/19 Time: 17:59 Interval history: He is feeling better. He had a BM this morning and yesterday and is not feeling bloated anymore. Working well with PT. - Review of Systems General: denies: fever/chills, weight/appetite/sleep changes, night sweats, fatigue Respiratory: denies: cough, congestion, shortness of breath, exercise intolerance Cardiovascular: denies: chest pain, palpitation, edema, paroxysmal nocturnal dyspnea, orthopnea Gastrointestinal: denies: nausea, vomiting, diarrhea, constipation, abd pain, GI bleeding Musculoskeletal: denies: pain, tenderness, stiffness, swelling, arthritis/ arthralgias Neurological: denies: numbness, syncope, seizure, weakness - Objective Allergies/Adverse Reactions: Allergies Allergy/AdvReac Type Severity Reaction Status Date / Time oxybutynin Allergy Anxiety Verified 12/31/18 10:52 HEB Fish Oil Allergy Rash Uncoded 12/31/18 10:52 Visit Medications: Current Medications Acetaminophen (Tylenol) 650 mg PO Q6H PRN PRN Reason: Headache/Fever or Pain Hydrocodone Bitart/Acetaminophen ([place] 5/325) 1 tab PO Q4H PRN PRN Reason: Moderate Pain (4-6) Last Admin: 01/03/19 08:55 Dose: 1 tab Hydrocodone Bitart/Acetaminophen ([place] 5/325) 2 tab PO Q4H PRN PRN Reason: Severe Pain (7-10) Last Admin: 01/03/19 21:22 Dose: 2 tab Al Hydroxide/Mg Hydroxide (Maalox) 30 ml PO Q4H PRN PRN Reason: Indigestion Last Admin: 01/05/19 08:48 Dose: 30 ml Aspirin (Ecotrin) 325 mg PO DAILY [facility] Last Admin: 01/05/19 08:49 Dose: 325 mg Atorvastatin Calcium (Lipitor) 20 mg PO HS [facility] Last Admin: 01/04/19 20:52 Dose: 20 mg Bisacodyl (Dulcolax) 10 mg PO Q12H PRN PRN Reason: Constipation Last Admin: 01/05/19 08:49 Dose: 10 mg Bisacodyl (Dulcolax) 10 mg [place] Q12H PRN PRN Reason: Constipation Enoxaparin Sodium (Lovenox) 30 mg SC 0900 [facility] Last Admin: 01/05/19 08:49 Dose: 30 mg Famotidine (Pepcid) 20 mg PO BID [facility] Last Admin: 01/05/19 08:49 Dose: 20 mg Guaifenesin/Dextromethorphan (Robitussin Dm) 15 ml PO Q4H PRN PRN Reason: Cough Mineral Oil (Fleet Mineral Oil) 133 ml [place] DAILYPRN PRN PRN Reason: Constipation Nitroglycerin (Nitrostat) 0.4 mg SL Q5MIN PRN PRN Reason: Chest Pain Ondansetron HCl (Zofran) 4 mg IVP Q6H PRN PRN Reason: Nausea/Vomiting Polyethylene Glycol (Miralax) 17 gm PO DAILY [facility] Last Admin: 01/05/19 08:48 Dose: 17 gm Potassium Chloride (Klor-Con 10) 10 meq PO QAM-WM [facility] Last Admin: 01/05/19 08:49 Dose: 10 meq Sulfasalazine (Azulfidine) 500 mg PO BID [facility] Last Admin: 01/05/19 08:49 Dose: 500 mg Vital Signs & Weight: Vital Signs Temp Pulse Pulse Pulse Resp BP BP 01/05/19 15:26 97.5 F L 86 12 01/05/19 14:20 97 97 119/74 111/72 01/05/19 13:20 97 107/66 103/66 01/05/19 11:55 98.6 F 89 14 01/05/19 08:48 120 H 105 H 141/72 H 116/64 01/05/19 07:31 98.0 F 92 18 01/05/19 07:05 BP Pulse Ox Pulse Ox Pulse Ox 01/05/19 15:26 106/64 95 01/05/19 14:20 01/05/19 13:20 01/05/19 11:55 108/64 94 L 01/05/19 08:48 94 L 94 L 01/05/19 07:31 105/69 93 L 01/05/19 07:05 93 L Weight 141 lb 12.8 oz - Quality Measures CV meds: Beta Noé: No, YUSEF/ARB: No, Statin: Yes, ASA: Yes - Medication Contraindications No Beta Noé reason: Medical contraindication No YUSEF/ARB reason: Medical contraindication - Physical Exam General: alert & oriented x3, no apparent distress HEENT: mucus membranes moist Neck: supple neck Cardiac: regular rate and rhythm, no murmur Lungs: clear to auscultation, normal breath sounds Neuro: grossly intact, coordination normal Abdomen: active bowel sounds, soft, non-tender Skin: clear Musculoskeletal: normal range of motion - Labs Result Diagrams: 01/02/19 03:40 01/02/19 03:30 - Telemetry Sinus rhythms and dysrhythmias: sinus rhythm - Assessment/Plan Assessment/Plan: 1. CAD 2. S/P CABG 3. Lupus 4. HLP PLAN: - Aspirin and statin for life. - Increase PT as tolerated. - BP too low for BB or ACEI.
[2019-01-05] MEDS: Atorvastatin Calcium 20 MG TAB PO SCH (20:10)
[2019-01-06] MEDS: Aspirin 325 mg Enteric Coated Tablet PO SCH (09:31)
[2019-01-06] MEDS: Famotidine 20 MG TAB PO SCH ×2 (09:32→20:24)
[2019-01-06] MEDS: sulfaSALAzine 500 MG TAB PO SCH ×2 (09:32→20:24)
[2019-01-06] MEDS: Polyethylene Glycol 3350 17 GM Packet PO SCH (09:32)
[2019-01-06] MEDS: Enoxaparin Sodium 30 MG/0.3 ML SYRINGE SC SCH (09:33)
--- NOTE | 2019-01-06 17:09 | PDOC.CPN ---
- Subjective Date: 01/06/19 Time: 17:08 Interval history: He is doing well. He had a large BM today and feels better overall. Chest sore but no angina. - Review of Systems General: denies: fever/chills, weight/appetite/sleep changes, night sweats, fatigue Respiratory: denies: cough, congestion, shortness of breath, exercise intolerance Cardiovascular: denies: chest pain, palpitation, edema, paroxysmal nocturnal dyspnea, orthopnea Gastrointestinal: denies: nausea, vomiting, diarrhea, constipation, abd pain, GI bleeding Musculoskeletal: reports: pain. denies: tenderness, stiffness, swelling, arthritis/arthralgias Neurological: denies: numbness, syncope, seizure, weakness - Objective Allergies/Adverse Reactions: Allergies Allergy/AdvReac Type Severity Reaction Status Date / Time oxybutynin Allergy Anxiety Verified 12/31/18 10:52 HEB Fish Oil Allergy Rash Uncoded 12/31/18 10:52 Visit Medications: Current Medications Acetaminophen (Tylenol) 650 mg PO Q6H PRN PRN Reason: Headache/Fever or Pain Hydrocodone Bitart/Acetaminophen ([place] 5/325) 1 tab PO Q4H PRN PRN Reason: Moderate Pain (4-6) Last Admin: 01/03/19 08:55 Dose: 1 tab Hydrocodone Bitart/Acetaminophen ([place] 5/325) 2 tab PO Q4H PRN PRN Reason: Severe Pain (7-10) Last Admin: 01/03/19 21:22 Dose: 2 tab Al Hydroxide/Mg Hydroxide (Maalox) 30 ml PO Q4H PRN PRN Reason: Indigestion Last Admin: 01/05/19 08:48 Dose: 30 ml Aspirin (Ecotrin) 325 mg PO DAILY [facility] Last Admin: 01/06/19 09:31 Dose: 325 mg Atorvastatin Calcium (Lipitor) 20 mg PO HS [facility] Last Admin: 01/05/19 20:10 Dose: 20 mg Bisacodyl (Dulcolax) 10 mg PO Q12H PRN PRN Reason: Constipation Last Admin: 01/05/19 08:49 Dose: 10 mg Bisacodyl (Dulcolax) 10 mg [place] Q12H PRN PRN Reason: Constipation Enoxaparin Sodium (Lovenox) 30 mg SC 0900 [facility] Last Admin: 01/06/19 09:33 Dose: 30 mg Famotidine (Pepcid) 20 mg PO BID [facility] Last Admin: 01/06/19 09:32 Dose: 20 mg Guaifenesin/Dextromethorphan (Robitussin Dm) 15 ml PO Q4H PRN PRN Reason: Cough Mineral Oil (Fleet Mineral Oil) 133 ml [place] DAILYPRN PRN PRN Reason: Constipation Nitroglycerin (Nitrostat) 0.4 mg SL Q5MIN PRN PRN Reason: Chest Pain Ondansetron HCl (Zofran) 4 mg IVP Q6H PRN PRN Reason: Nausea/Vomiting Polyethylene Glycol (Miralax) 17 gm PO DAILY [facility] Last Admin: 01/06/19 09:32 Dose: 17 gm Sulfasalazine (Azulfidine) 500 mg PO BID [facility] Last Admin: 01/06/19 09:32 Dose: 500 mg Vital Signs & Weight: Vital Signs Temp Pulse Pulse Pulse Resp BP BP 01/06/19 15:44 99.0 F 83 16 01/06/19 15:40 98 99 111/69 111/66 01/06/19 11:33 98.3 F 90 14 01/06/19 11:17 99 88 102/64 111/68 01/06/19 08:50 120 H 107 H 105/58 L 108/71 01/06/19 08:00 98.8 F 93 16 BP Pulse Ox Pulse Ox Pulse Ox 01/06/19 15:44 100/61 94 L 01/06/19 15:40 95 94 L 01/06/19 11:33 114/71 96 01/06/19 11:17 98 95 01/06/19 08:50 92 L 93 L 01/06/19 08:00 104/62 94 L Weight 143 lb 3.2 oz - Quality Measures Condition: Coronary Artery Disease CV meds: Beta Noé: No (Relative hypotension), YUSEF/ARB: No (Relative hypotension), Statin: Yes, ASA: Yes - Medication Contraindications No Beta Noé reason: Beta noé not tolerated No YUSEF/ARB reason: ACEI/ARB not tolerated - Physical Exam General: alert & oriented x3, no apparent distress HEENT: mucus membranes moist Neck: supple neck, midline trachea Cardiac: regular rate and rhythm, no murmur, regular rate Lungs: clear to auscultation, normal breath sounds, no wheeze, rales, rhonchi Neuro: grossly intact, coordination normal Abdomen: active bowel sounds, soft, non-tender Skin: clear Musculoskeletal: normal range of motion - Labs Result Diagrams: 01/02/19 03:40 01/02/19 03:30 - Telemetry Sinus rhythms and dysrhythmias: sinus rhythm - Assessment/Plan Assessment/Plan: 1. CAD 2. S/P CABG 3. Lupus 4. HLP 5. Urethral stricture PLAN: - Aspirin and statin for life. - Increase PT as tolerated. - BP too low for BB or ACEI, cannot institute. - [place] catheter in place. Per urology consultation voiding trial one week after discharge with Dr. Frias his primary urologist. - Has an appointment already with his primary cell assembly pinner Dr. Godfrey in one month.
[2019-01-06] MEDS: Atorvastatin Calcium 20 MG TAB PO SCH (20:24)
[2019-01-07] MEDS ORDERED: Sodium Chloride 0.9% 0 ML ONE (08:10)
[2019-01-07] MEDS: Famotidine 20 MG TAB PO SCH ×2 (08:39→21:32)
[2019-01-07] MEDS: sulfaSALAzine 500 MG TAB PO SCH ×2 (08:40→21:32)
[2019-01-07] MEDS: Aspirin 325 mg Enteric Coated Tablet PO SCH (08:40)
[2019-01-07] MEDS: Enoxaparin Sodium 30 MG/0.3 ML SYRINGE SC SCH (08:40)
[2019-01-07] MEDS: Polyethylene Glycol 3350 17 GM Packet PO SCH (08:41)
--- NOTE | 2019-01-07 16:42 | EKG ---
Test Reason : STAT Blood Pressure : / mmHG Vent. Rate : 099 BPM Atrial Rate : 099 BPM P-R Int : 138 ms QRS Dur : 084 ms QT Int : 314 ms P-R-T Axes : 049 016 079 degrees QTc Int : 402 ms Normal sinus rhythm Nonspecific ST abnormality Abnormal ECG When compared with ECG of 01-JAN-2019 14:49, Minimal criteria for Inferior infarct are no longer Present ST elevation now present in Inferior leads ST no longer elevated in Lateral leads Confirmed by DR. Maryellen MENDEZ ([id number]) on 01/07/2019 4:42:32 PM Referred By: RYAN Confirmed By:DR. Maryellen MENDEZ
--- NOTE | 2019-01-07 18:10 | PDOC.CPN ---
- Subjective Date: 01/07/19 Time: 18:09 Interval history: Doing well. Working well with PT. Had BM. - Review of Systems General: denies: fever/chills, weight/appetite/sleep changes, night sweats, fatigue Respiratory: reports: cough. denies: congestion, shortness of breath, exercise intolerance Cardiovascular: denies: chest pain, palpitation, edema, paroxysmal nocturnal dyspnea, orthopnea Gastrointestinal: denies: nausea, vomiting, diarrhea, constipation, abd pain, GI bleeding Musculoskeletal: reports: pain. denies: tenderness, stiffness, swelling, arthritis/arthralgias Neurological: denies: numbness, syncope, seizure, weakness - Objective Allergies/Adverse Reactions: Allergies Allergy/AdvReac Type Severity Reaction Status Date / Time oxybutynin Allergy Anxiety Verified 12/31/18 10:52 HEB Fish Oil Allergy Rash Uncoded 12/31/18 10:52 Visit Medications: Current Medications Acetaminophen (Tylenol) 650 mg PO Q6H PRN PRN Reason: Headache/Fever or Pain Hydrocodone Bitart/Acetaminophen ([place] 5/325) 1 tab PO Q4H PRN PRN Reason: Moderate Pain (4-6) Last Admin: 01/03/19 08:55 Dose: 1 tab Hydrocodone Bitart/Acetaminophen ([place] 5/325) 2 tab PO Q4H PRN PRN Reason: Severe Pain (7-10) Last Admin: 01/03/19 21:22 Dose: 2 tab Al Hydroxide/Mg Hydroxide (Maalox) 30 ml PO Q4H PRN PRN Reason: Indigestion Last Admin: 01/05/19 08:48 Dose: 30 ml Aspirin (Ecotrin) 325 mg PO DAILY [facility] Last Admin: 01/07/19 08:40 Dose: 325 mg Atorvastatin Calcium (Lipitor) 20 mg PO HS [facility] Last Admin: 01/06/19 20:24 Dose: 20 mg Bisacodyl (Dulcolax) 10 mg PO Q12H PRN PRN Reason: Constipation Last Admin: 01/05/19 08:49 Dose: 10 mg Bisacodyl (Dulcolax) 10 mg [place] Q12H PRN PRN Reason: Constipation Enoxaparin Sodium (Lovenox) 30 mg SC 0900 [facility] Last Admin: 01/07/19 08:40 Dose: 30 mg Famotidine (Pepcid) 20 mg PO BID [facility] Last Admin: 01/07/19 08:39 Dose: 20 mg Guaifenesin/Dextromethorphan (Robitussin Dm) 15 ml PO Q4H PRN PRN Reason: Cough Mineral Oil (Fleet Mineral Oil) 133 ml [place] DAILYPRN PRN PRN Reason: Constipation Nitroglycerin (Nitrostat) 0.4 mg SL Q5MIN PRN PRN Reason: Chest Pain Ondansetron HCl (Zofran) 4 mg IVP Q6H PRN PRN Reason: Nausea/Vomiting Polyethylene Glycol (Miralax) 17 gm PO DAILY [facility] Last Admin: 01/07/19 08:41 Dose: Not Given Sulfasalazine (Azulfidine) 500 mg PO BID [facility] Last Admin: 01/07/19 08:40 Dose: 500 mg Vital Signs & Weight: Vital Signs Temp Pulse Pulse Pulse Resp BP BP 01/07/19 15:30 98.3 F 86 18 01/07/19 14:51 92 91 103/65 107/69 01/07/19 13:57 94 111/70 116/66 01/07/19 11:20 97.9 F 92 16 01/07/19 09:08 105 H 99 107/68 109/68 01/07/19 07:30 98.4 F 90 18 BP Pulse Ox 01/07/19 15:30 102/64 95 01/07/19 14:51 01/07/19 13:57 01/07/19 11:20 112/72 97 01/07/19 09:08 01/07/19 07:30 106/59 L 94 L Weight 143 lb 3.2 oz - Quality Measures Condition: Coronary Artery Disease CV meds: Beta Noé: No (Relative hypotension), YUSEF/ARB: No (Relative hypotension), Statin: Yes, ASA: Yes - Medication Contraindications No Beta Noé reason: Beta noé not tolerated No YUSEF/ARB reason: ACEI/ARB not tolerated - Physical Exam General: alert & oriented x3, no apparent distress HEENT: mucus membranes moist, normocephaly Neck: supple neck, midline trachea Cardiac: regular rate and rhythm, no murmur, regular rate Lungs: clear to auscultation, no wheeze, rales, rhonchi Neuro: grossly intact, coordination normal Abdomen: active bowel sounds, soft, non-tender Skin: clear Musculoskeletal: normal range of motion, no pain - Labs Result Diagrams: 01/02/19 03:40 01/02/19 03:30 - Telemetry Sinus rhythms and dysrhythmias: sinus rhythm - Assessment/Plan Assessment/Plan: 1. CAD 2. S/P CABG 3. Lupus 4. HLP 5. Urethral stricture PLAN: - Aspirin and statin for life. - Increase PT as tolerated. - BP too low for BB or ACEI, cannot add for now. - Has an appointment already with his primary oysterman Dr. Godfrey in one month. - Awaiting placement.
[2019-01-07] MEDS: Atorvastatin Calcium 20 MG TAB PO SCH (21:32)
[2019-01-08] MEDS: Famotidine 20 MG TAB PO SCH (08:17)
[2019-01-08] MEDS: Aspirin 325 mg Enteric Coated Tablet PO SCH (08:17)
[2019-01-08] MEDS: Enoxaparin Sodium 30 MG/0.3 ML SYRINGE SC SCH (08:17)
[2019-01-08] MEDS: sulfaSALAzine 500 MG TAB PO SCH (08:17)
[2019-01-08] MEDS: Polyethylene Glycol 3350 17 GM Packet PO SCH (08:18)
--- NOTE | 2019-01-08 15:48 | PDOC.CPN ---
- Subjective Date: 01/08/19 Time: 15:46 Interval history: He is doing well. No new issues. - Review of Systems General: denies: fever/chills, weight/appetite/sleep changes, night sweats, fatigue Respiratory: denies: cough, congestion, shortness of breath, exercise intolerance Cardiovascular: denies: chest pain, palpitation, edema, paroxysmal nocturnal dyspnea, orthopnea Gastrointestinal: denies: nausea, vomiting, diarrhea, constipation, abd pain, GI bleeding Musculoskeletal: denies: pain, tenderness, stiffness, swelling, arthritis/ arthralgias Neurological: denies: numbness, syncope, seizure, weakness - Objective Allergies/Adverse Reactions: Allergies Allergy/AdvReac Type Severity Reaction Status Date / Time oxybutynin Allergy Anxiety Verified 12/31/18 10:52 HEB Fish Oil Allergy Rash Uncoded 12/31/18 10:52 Visit Medications: Current Medications Acetaminophen (Tylenol) 650 mg PO Q6H PRN PRN Reason: Headache/Fever or Pain Last Admin: 01/08/19 01:38 Dose: 650 mg Hydrocodone Bitart/Acetaminophen ([place] 5/325) 1 tab PO Q4H PRN PRN Reason: Moderate Pain (4-6) Last Admin: 01/03/19 08:55 Dose: 1 tab Hydrocodone Bitart/Acetaminophen ([place] 5/325) 2 tab PO Q4H PRN PRN Reason: Severe Pain (7-10) Last Admin: 01/03/19 21:22 Dose: 2 tab Al Hydroxide/Mg Hydroxide (Maalox) 30 ml PO Q4H PRN PRN Reason: Indigestion Last Admin: 01/05/19 08:48 Dose: 30 ml Aspirin (Ecotrin) 325 mg PO DAILY [facility] Last Admin: 01/08/19 08:17 Dose: 325 mg Atorvastatin Calcium (Lipitor) 20 mg PO HS [facility] Last Admin: 01/07/19 21:32 Dose: 20 mg Bisacodyl (Dulcolax) 10 mg PO Q12H PRN PRN Reason: Constipation Last Admin: 01/05/19 08:49 Dose: 10 mg Bisacodyl (Dulcolax) 10 mg [place] Q12H PRN PRN Reason: Constipation Enoxaparin Sodium (Lovenox) 30 mg SC 0900 [facility] Last Admin: 09/19/19 08:17 Dose: 30 mg Famotidine (Pepcid) 20 mg PO BID [facility] Last Admin: 01/08/19 08:17 Dose: 20 mg Guaifenesin/Dextromethorphan (Robitussin Dm) 15 ml PO Q4H PRN PRN Reason: Cough Mineral Oil (Fleet Mineral Oil) 133 ml [place] DAILYPRN PRN PRN Reason: Constipation Nitroglycerin (Nitrostat) 0.4 mg SL Q5MIN PRN PRN Reason: Chest Pain Ondansetron HCl (Zofran) 4 mg IVP Q6H PRN PRN Reason: Nausea/Vomiting Polyethylene Glycol (Miralax) 17 gm PO DAILY [facility] Last Admin: 01/08/19 08:18 Dose: Not Given Sulfasalazine (Azulfidine) 500 mg PO BID [facility] Last Admin: 01/08/19 08:17 Dose: 500 mg Vital Signs & Weight: Vital Signs Temp Pulse Pulse Resp BP BP Pulse Ox 01/08/19 11:40 98.2 F 88 22 H 105/70 95 01/08/19 10:57 97 111/64 01/08/19 08:12 98.3 F 96 18 95/60 94 L Weight 139 lb 12.8 oz - Quality Measures Condition: Coronary Artery Disease CV meds: Beta Noé: No (Relative hypotension), YUSEF/ARB: No (Relative hypotension), Statin: Yes, ASA: Yes - Medication Contraindications No Beta Noé reason: Beta noé not tolerated No YUSEF/ARB reason: ACEI/ARB not tolerated - Physical Exam General: alert & oriented x3, no apparent distress HEENT: mucus membranes moist, normocephaly Neck: supple neck, midline trachea Cardiac: regular rate and rhythm, no murmur, regular rate Lungs: clear to auscultation, no wheeze, rales, rhonchi Neuro: grossly intact, coordination normal Abdomen: active bowel sounds, soft, non-tender Skin: clear Musculoskeletal: normal range of motion, no pain - Labs Result Diagrams: 01/02/19 03:40 01/02/19 03:30 - Telemetry Sinus rhythms and dysrhythmias: sinus rhythm - Assessment/Plan Assessment/Plan: 1. CAD 2. S/P CABG 3. Lupus 4. HLP 5. Urethral stricture PLAN: - Aspirin and statin for life. - Increase PT as tolerated. - BP too low for BB or ACEI, cannot add for now. - Has an appointment already with his primary staking press operator Dr. Godfrey in one month. - Placement.
[2019-01-08 16:24] VITALS: BP 117/64; TEMP 98.3
--- NOTE | 2019-01-09 03:06 | DIS ---
DATE OF ADMISSION: 01/01/2019 DATE OF DISCHARGE: 01/08/2019 HOSPITAL COURSE: Gentleman admitted to the hospital after previous cardiac catheterization where he underwent coronary artery bypass grafting to the LAD and diagonal on 01/01. Postoperative course was uneventful. He had some mild resting tachycardia. However, his blood pressure normally runs about 100-105 at home and so was elected not to place him on beta blockers. He will resume his home medications plus tramadol at discharge. Discharge has been delayed about 3 days due to insurance issues, but needs to be discharged today to the rehab facility because he does live alone at home. Discharge and followup instructions were given. Job ID: [id number]
== END 2019-01-08 19:29 | DRG 236 ==
LOC: SURG A 06:02 → CCU 10:51 → 2NO 01-02 20:03
PROVIDERS: ADMIT Thoracic Surgery (Cardiothoracic Vascular Surgery); ATTEND Thoracic Surgery (Cardiothoracic Vascular Surgery)
PROC: 021009W Bypass Coronary Artery, One Artery from Aorta with Autologous Venous Tissue, Open Approach (ICD-10-PCS; principal; 2019-01-01)
PROC: 02100Z9 Bypass Coronary Artery, One Artery from Left Internal Mammary, Open Approach (ICD-10-PCS; 2019-01-01)
PROC: 06BQ4ZZ Excision of Left Saphenous Vein, Percutaneous Endoscopic Approach (ICD-10-PCS; 2019-01-01)
PROC: 5A1221Z Performance of Cardiac Output, Continuous (ICD-10-PCS; 2019-01-01)
PROC: 0T9B80Z Drainage of Bladder with Drainage Device, Via Natural or Artificial Opening Endoscopic (ICD-10-PCS; 2019-01-01)
PROC: 0T7D8ZZ Dilation of Urethra, Via Natural or Artificial Opening Endoscopic (ICD-10-PCS; 2019-01-01)
DX: I25.118 Atherosclerotic heart disease of native coronary artery with other forms of angina pectoris (principal); E78.5 Hyperlipidemia, unspecified; M32.9 Systemic lupus erythematosus, unspecified; N35.912 Unspecified bulbous urethral stricture, male; G47.00 Insomnia, unspecified; Z95.5 Presence of coronary angioplasty implant and graft; Z79.82 Long term (current) use of aspirin; Z88.8 Allergy status to other drugs, medicaments and biological substances; Z79.899 Other long term (current) drug therapy
CPT/HCPCS: 36415; 36416; 36430; 71045; 80048; 82805; 82947; 85025; 85610; 85730; 86850; 86900; 86901; 93005; 93010; 93798; 94002; 94150; J0690; J1580; J1642; J1644; J1650; J1815; J1885; J2001; J2150; J2250; J2370; J2405; J2440; J2704; J2720; J3010; J3370; J3475; J3480; J3490; J7050; P9045; S0017; S0028